=== PATIENT | male | born 1955 | race Caucasian/White ===

== ENCOUNTER 2017-02-16 04:48 | Inpatient (IN) ==
[2017-02-16] MEDS ORDERED: ASPIRIN PO STA (04:57)
--- NOTE | 2017-02-16 05:02 | PROVIDER DOCUMENTATION ---
HPI-Cardiac General - General Chief Complaint: Shortness of Breath Stated Complaint: sob Time Seen by Provider: 02/16/17 04:56 Source: patient Unable to obtain history due to:: urgency Allergies/Adverse Reactions: Patient Allergies Allergy/AdvReac Type Severity Reaction Status Date / Time Penicillins Allergy ANAPHYLAXIS Verified 12/20/15 18:57 Home Medications: Home Medication List Medication Instructions Recorded Confirmed Last Taken Type Amitriptyline HCl 100 mg PO HS 12/20/15 02/16/17 02/15/17 21:00 History Carisoprodol [Soma] 350 mg PO Q6H PRN PRN 12/20/15 02/16/17 02/15/17 18:00 History Diazepam [Valium] 10 mg PO HS PRN 12/20/15 02/16/17 12/19/15 20:00 History 10mg Morphine E.r. [Ms Contin] 60 mg PO TID 12/20/15 02/16/17 02/15/17 18:00 History Naloxone HCl [Evzio] 0.4 ml IM PRN PRN 12/20/15 02/16/17 Unknown History Pregabalin [Lyrica] 75 mg PO BID 12/20/15 02/16/17 02/15/17 21:00 History Hydrocodone/APAP 10 mg/325 mg 1 each PO Q4H PRN PRN #0 tablet 12/29/15 02/16/17 02/15/17 18:00 Rx [[place]ire-10] Melatonin 10 mg PO QHS #0 tablet 12/29/15 02/16/17 Unknown Rx Nivolumab [Opdivo] 100 mg IV DIRECTED 02/16/17 02/16/17 02/11/17 08:00 History Ranitidine [Zantac] 300 mg PO QHS PRN 02/16/17 02/16/17 Unknown History - History of Present Illness-Cardiac Nature of Presenting Problem: 61 year old male with a history of lung cancer, s/p chemotherapy presents complaining of severe generalized swelling and dyspnea over the last 1 week. He also complains of inability to urinate. Location: reports: substernal Quality of Pain: reports: tightness Onset/Duration: last week Timing: still present Context/Activities at Onset: reports: light activity Modifying Factors: improves with: nothing Palpitation Quality: N/A History of arrythmia: reports: none Recent use of:: reports: no stimulants Nitro Today/Relief: reports: no nitro taken today Aspirin Treatment Today: reports: no aspirin today Prior Chest Pain/Cardiac Workup: reports: non-cardiac Associated Symptoms: reports: diaphoresis, shortness of breath, swelling/lump in chest, vomiting Similar Symptoms Previously?: No Recently Seen Here or By Another Healthcare Provider: No Review of Systems - Adult - REVIEW OF SYSTEMS - ADULT Constitutional: reports: no symptoms reported Eyes: reports: no symptoms reported Ears, Nose, Mouth & Throat: reports: no symptoms reported Cardiovascular: reports: no symptoms reported Respiratory: reports: no symptoms reported, chronic cough, cough, dyspnea on exertion, excessive sputum production, shortness of breath, wheezing Gastrointestinal: reports: no symptoms reported Genitourinary: reports: no symptoms reported Musculoskeletal: reports: no symptoms reported Integumentary: reports: no symptoms reported Neurological: reports: no symptoms reported Psychiatric: reports: no symptoms reported Endocrine: reports: no symptoms reported Hematologic/Lymphatic: reports: no symptoms reported Allergic/Immunologic: reports: no symptoms reported All Other Systems: Reviewed and Negative Past History - Adult - PAST MEDICAL HISTORY-ADULT Review of Records: reports: Old Records Reviewed, Nursing Assessment Review, Medications Reviewed, Social history reviewed & non-contributory. Physical Exam-General - PHYSICAL EXAM-ADULT Initial Vital Signs Reviewed: Yes - CONSTITUTIONAL General Appearance: severe distress, anxious - EYES Eyes: PERRL/EOMI - HEAD, EARS, NOSE, MOUTH & THROAT HENMT: normocephalic/atraumatic, normal ENT inspection, TMs normal - NECK Neck: non-tender, full range of motion - RESPIRATORY Respiratory: respiratory distress (peripheral edema), decreased breath sounds, rales, rhonchi, wheezing, dull on percussion, prolonged expiration, pain on inspiration - CARDIOVASCULAR Cardiovascular: normal peripheral pulses, regular rate, rhythm - GASTROINTESTINAL (ABDOMEN) Abdominal Exam: normal bowel sounds, non tender - LYMPHATIC Lymphatic: no adenopathy - MUSCULOSKELETAL Back Exam: normal inspection, no CVA tenderness, no vertebral tenderness Extremity: normal range of motion, non-tender, normal gait - SKIN Integumentary: normal color, normal turgor, warm/dry - NEUROLOGIC Neurologic: examination grader II-XII nml as tested, grossly normal, no motor/sensory deficits - PSYCHIATRIC Psych/Mental Status: normal mood/affect, normal thought content, normal thought process Progress - PLAN OF CARE/RESULTS Progress/Plan/Lab Results: Vital Signs - 8 hr 02/16/17 04:48 Temperature 97.9 F Pulse Rate 101 H Respiratory Rate 22 Blood Pressure 151/87 O2 Sat by Pulse Oximetry 96 Laboratory Results - last 24 hr 02/16/17 02/16/17 02/16/17 04:45 04:45 04:45 WBC 12.74 H RBC 4.64 L Hgb 14.9 Hct 46.1 MCV 99.4 H MCH 32.1 H MCHC 32.3 L RDW Std Deviation 13.6 Plt Count 437 H MPV 9.6 Immature Gran % (Auto) 0.2 Neut % (Auto) 86.1 H Lymph % (Auto) 2.4 L Hughes % (Auto) 10.9 H Eos % (Auto) 0.2 Baso % (Auto) 0.2 Immature Gran # (Auto) 0.02 Neut # (Auto) 10.97 H Lymph # (Auto) 0.31 L Hughes # (Auto) 1.39 H Eos # (Auto) 0.03 Baso # (Auto) 0.02 PT INR PTT (Actin FS) Sodium 128 L Potassium 4.5 Chloride 78 L Carbon Dioxide 43 H Anion Gap 7 BUN 7 L Creatinine 0.4 L Estimated GFR/1.73 m2 > 60 BUN/Creatinine Ratio 18 Glucose 99 Calculated Osmolality 255 Calcium 9.4 Magnesium 1.6 Total Bilirubin 0.29 AST 44 H ALT 22 Alkaline Phosphatase 161 H Creatine Kinase 90 Troponin T Miv-W-Aovtlqxuocs Pept 1632 H Total Protein 7.3 Albumin 3.2 L Globulin 4.1 Albumin/Globulin Ratio 0.8 Plasma Lactate 02/16/17 02/16/17 02/16/17 04:45 04:45 04:45 WBC RBC Hgb Hct MCV MCH MCHC RDW Std Deviation Plt Count MPV Immature Gran % (Auto) Neut % (Auto) Lymph % (Auto) Hughes % (Auto) Eos % (Auto) Baso % (Auto) Immature Gran # (Auto) Neut # (Auto) Lymph # (Auto) Hughes # (Auto) Eos # (Auto) Baso # (Auto) PT 12.3 H INR 1.16 PTT (Actin FS) 36.9 H Sodium Potassium Chloride Carbon Dioxide Anion Gap BUN Creatinine Estimated GFR/1.73 m2 BUN/Creatinine Ratio Glucose Calculated Osmolality Calcium Magnesium Total Bilirubin AST ALT Alkaline Phosphatase Creatine Kinase Troponin T 0.023 Dic-X-Xbvimtwiuge Pept Total Protein Albumin Globulin Albumin/Globulin Ratio Plasma Lactate 1.0 Orders Category Date Time Status Cardiac Monitoring DIRECTED Care 02/16/17 04:57 Completed Gore Cath Insertion ORDERED Care 02/16/17 06:52 Active Oxygen Therapy- ED Nursing DIRECTED Care 02/16/17 04:57 Completed Saline Loc NOW Care 02/16/17 04:57 Completed CHEST-PORTABLE [RAD] Stat Exams 02/16/17 04:57 Taken ABG [RESP] Routine Lab 02/16/17 07:12 Ordered BLOOD CULTURE [BLDCUL] Stat Lab 02/16/17 04:50 Results CBC WITH ELECTRONIC DIFF [HEME] Stat Lab 02/16/17 04:45 Completed CK PROFILE [SP CHEM] Stat Lab 02/16/17 04:45 Completed COMPREHENSIVE METABOLIC PANEL [CHEM] Stat Lab 02/16/17 04:45 Completed LACTATE, PLASMA [CHEM] Stat Lab 02/16/17 04:45 Completed MAGNESIUM [CHEM] Stat Lab 02/16/17 04:45 Completed PRO B-NATRIURETIC PEPTIDE Stat Lab 02/16/17 04:45 Completed PROTIME WITH INR [COAG] Stat Lab 02/16/17 04:45 Completed PTT [COAG] Stat Lab 02/16/17 04:45 Completed TROPONIN T Stat Lab 02/16/17 04:45 Completed Aspirin Med 02/16/17 04:57 Discontinued 325 mg PO STAT STA Furosemide [Lasix] Med 02/16/17 05:32 Discontinued 100 mg .ROUTE .STK-MED ONE Furosemide [Lasix] Med 02/16/17 05:31 Discontinued 80 mg IV NOW ONE Hydromorphone [Dilaudid] Med 02/16/17 05:32 Discontinued 1 mg .ROUTE .STK-MED ONE Hydromorphone [Dilaudid] Med 02/16/17 05:30 Discontinued 1 mg IV NOW ONE Hydromorphone [Dilaudid] Med 02/16/17 06:53 Discontinued 1 mg IV NOW ONE Levaquin 750 mg/D5w IV Now Med 02/16/17 07:20 Ordered Levofloxacin 750 mg/D5w [Levaquin 750 mg/D5w] 750 mg in 150 ml IV NOW Proparacaine 0.5% Ophth Soln [Alcaine 0.5% Ophth Soln] Med 02/16/17 06:50 Discontinued 15 ml .ROUTE .STK-MED ONE EKG [EKG] Stat Ther 02/16/17 04:57 Ordered Result Diagrams: 02/16/17 04:45 02/16/17 04:45 - EKG 1 Rate: 87 Rhythm: sinus [place]: normal QRS: normal SC Interval: normal ST Wave: normal Prior EKG Comparison: unchanged from prior - XRAY 1 XRAY Study: Chest Impression: Abnormal (Severe L pleural effusion, worse than 01/30/17) - CONSULTS/PCP/HOSPITALIST Notification #1 *Consult/PCP/Hospitalist*: Dr. An Time Discussed: 07:21 Reason/Comments: Admit to Dr. An Consult Disposition: Admit Departure - Departure Date of Disposition Decision: 02/16/17 Time of Disposition Decision: 07:21 DIAGNOSIS: SOB (shortness of breath), Pneumonia Lung cancer Qualifiers: Laterality: left Lung location: unspecified part of lung Qualified Code(s): C34.92 - Malignant neoplasm of unspecified part of left bronchus or lung Disposition: ADMITTED INPATIENT 09 Certified Medical Emergency: Emergent Condition: Stable Referrals and Follow-Ups: Kirby Ward MD [Primary Care Provider] - - Critical Care Note This patient required my direct & personal management of CC.: No
[2017-02-16] MEDS ORDERED: DILAUDID IV ONE ×2 (05:30→06:53)
[2017-02-16] MEDS ORDERED: LASIX IV ONE ×2 (05:31→09:34)
[2017-02-16] MEDS ORDERED: DILAUDID ONE (05:32)
[2017-02-16] MEDS ORDERED: LASIX ONE (05:32)
[2017-02-16 05:46] LABS: INR 1.16; PROTIME 12.3 Seconds (9.2-11.7); PTT 36.9 Seconds (22.0-36.0)
[2017-02-16 06:14] LABS: AGAP 7; ALBUMIN 3.2 g/dL (3.5-5.0); ALKALINE PHOSPHATASE 161 U/L (32-122); BUN 7 mg/dL (8-22); CALCIUM 9.4 mg/dL (8.8-10.2); CHLORIDE 78 mmol/L (98-107); CK PROFILE 90 U/L (24-204); COSMO 255; GOT 44 U/L (10-34); GPT 22 U/L (10-44); MAGNESIUM 1.6 mg/dL (1.5-2.7); POTASSIUM 4.5 mmol/L (3.5-5.1); SODIUM 128 mmol/L (136-145); TCO2 43 mmol/L (25-35); TOTAL BILIRUBIN 0.29 mg/dL (0.20-1.00); TOTAL PROTEIN 7.3 g/dL (6.3-8.3)
[2017-02-16 06:38] LABS: BASO% 0.2 % (0.0-0.8); EOS# 0.03 X1000 (0.0-0.7); EOS% 0.2 % (0.0-10.0); HEMATOCRIT 46.1 % (42.0-52.0); HEMOGLOBIN 14.9 g/dL (14.0-18.0); IMM GRAN# 0.02 X1000 (0.0-0.04); IMM GRAN% 0.2 % (0.0-0.5); LYMPH# 0.31 X1000 (1.2-3.4); LYMPH% 2.4 % (20.5-51.1); MANUAL DIFF NEEDED? NO; MCH 32.1 PG (27-31); MCHC 32.3 g/dL (33-37); MCV 99.4 FL (81-99); MONO# 1.39 X1000 (0.11-0.59); MONO% 10.9 % (1.7-9.3); MPV 9.6 FL (7.4-10.4); NEUT% 86.1 % (42.2-75.2); PLT 437 X1000 (130-400); RBC 4.64 XMIL (4.7-6.1)
[2017-02-16] MEDS ORDERED: ALCAINE 0.5% OPHTH SOLN ONE (06:50)
[2017-02-16] MEDS ORDERED: LEVAQUIN 750 MG/D5W 750 MG/150 ML IVPB IV ONE (07:20)
--- NOTE | 2017-02-16 08:26 | Diag Imaging Result Doc PS360 ---
EXAM: CHEST-PORTABLE INDICATION: CP TECHNIQUE: One view COMPARISON: 01/30/2017 FINDINGS: There is a large left pleural effusion and a small to moderate-sized right pleural effusion. These have increased in size during the interval. The left hemithorax is completely opacified. There is atelectasis and/or infiltrate at the right lung base. The cardiomediastinal silhouette is largely obscured by the opacified left hemithorax. IMPRESSION: Large left pleural effusion with complete opacification of the left hemithorax and small to moderate-sized right effusion. These have worsened during the interval. Electronically signed by Nam Weber 02/16/2017 8:24 AM
[2017-02-16] MEDS ORDERED: NORCO-10 PO PRN (09:16)
[2017-02-16] MEDS ORDERED: MS CONTIN PO SCH ×2 (09:22→09:30)
[2017-02-16] MEDS: SOLU-MEDROL IV SCH ×2 (10:32→17:51)
[2017-02-16 10:53] LABS: ALLEN TEST YES; BE 23.1 mmoll (-3.0-3.0); BLOOD TYPE ARTERIAL; DRAW SITE R RADIAL; METHB 0.8 % (0.0-1.5); O2(CT) 17.6 mL/dL (15.0-23.0); PO2(98.6) 63 mmHg (60-100); SAMPLE BLOOD; THB 13.7 g/dL (11.5-17.4); pH(98.6) 7.44 (7.35-7.45)
[2017-02-16 10:56] LABS: MODALITY CANNULA
[2017-02-16 11:00] LABS: PCO2(98.6) 77 mmHg (35-45)
[2017-02-16] MEDS ORDERED: NARCAN IM PRN (12:04)
[2017-02-16] MEDS ORDERED: NIVOLUMAB IV SCH (12:15)
[2017-02-16] MEDS: LOVENOX SUBQ SCH (12:53)
[2017-02-16] MEDS: DILAUDID IV PRN ×3 (12:53→19:13)
[2017-02-16] MEDS ORDERED: CARDIZEM IV ONE (14:03)
--- NOTE | 2017-02-16 14:08 | HISTORY AND PHYSICAL ---
CHIEF COMPLAINT: Shortness of breath, swelling of feet, gaining weight (25 pounds) since he had his last chemotherapy, Opdivo. HISTORY OF PRESENT ILLNESS: He is a 61-year-old white male patient of Dr. Ward under the care of Dr. Hammer, who recently had chemotherapy. Complains of dyspnea, swelling, chronic pain, unable to urinate. He gained 25 pounds. In the ER, chest x-ray showed worsening of the fluid effusion on the right side. Left lung is completely jake out. He is hypoxic. Gore catheter was given and patient was given IV Lasix with excellent diuresis. He is asking for more pain medicine. As a result, he has been hospitalized. PAST MEDICAL HISTORY: 1. Squamous cell carcinoma, moderately differentiated, in the left upper lobe. 2. Chronic neck pain. 3. Chronic back pain. 4. Acid reflux disease. PAST SURGICAL HISTORY: Cervical spine surgery, back surgery, left femur comminuted fracture repair. MEDICATIONS: Amitriptyline 100 mg daily, Soma 350 q.6 as needed, Valium 10 mg as needed, morphine (MS Contin) 60 p.o. t.i.d. Naloxone as needed. Lyrica 75 p.o. b.i.d. [place] 10 q.4 as needed. Melatonin 10 mg daily. Zantac 300 daily. Opdivo as directed by Dr. Hammer. ALLERGIES: Penicillin (anaphylaxis). SOCIAL HISTORY: 27 years. He used to work for a [employer]. Quit smoking for the last 1 year. No alcohol. No children. FAMILY HISTORY: Mom is alive with atrial fibrillation. Father of old age. Siblings are fine. REVIEW OF SYSTEMS: HEENT: No headache. No vision problem. No earache. No sore throat. Neck: No goiter. No lymphadenopathy. No bruit. Cardiopulmonary: Shortness of breath, wheezing, and swelling of feet. Gaining weight. No chest pain. Gastrointestinal: No nausea, vomiting, abdominal pain. Genitourinary: No history of hesitancy, frequency. Gore catheter was placed. Musculoskeletal: Chronic neck pain, back pain, swelling of feet. Neurologic: No weakness or seizures, dizziness or vertigo. PHYSICAL EXAMINATION: VITAL SIGNS: Stable. He is 5 feet 10 inches, 162 pounds. On nasal cannula, 93%. GENERAL APPEARANCE: He is slightly kyphotic, not in respiratory distress. Asking for more pain medicine. HEENT: Atraumatic, normocephalic. Pupils equal, reactive to light. TMs are normal. Nose and throat within normal limits. NECK: Supple. No lymphadenopathy. No goiter. CHEST: Decreased breath sounds, left base. Scattered rhonchi. HEART: Sounds are regular. ABDOMEN: Belly is soft, nontender. Good bowel sounds. No masses palpable. EXTREMITIES: Pedal edema 3+ noted. GENITOURINARY: Gore was placed. A lot of penile edema. NEUROLOGIC: No obvious focal deficits noted. INVESTIGATIONS: CBC: White cell count 12.7, hematocrit 46, platelets 437,000. PT 12 and INR 1.1. ABG: pH is 7.44, pCO2 is 77, and PO2 is 63 on 2L. SMA 7: Sodium 138, potassium 4.8, chloride 78, BUN 7, creatinine 0.4, glucose 99, magnesium 1.6. Liver function tests were normal. proBNP 1600. Chest x-ray: Worsening of the effusion. Small to moderate right pleural effusion large, worsening during interval. Last echocardiography was normal LV systolic function. ASSESSMENT AND PLAN: 1. A 61-year-old white gentleman, admitted to the hospital with shortness of breath with underlying left upper lobe non-small cell lung cancer, on chemotherapy, worsening with effusion and pedal edema after recent chemotherapy. The patient is not interested in taking further chemotherapy. Plan is oxygen, IV Lasix, and follow up on the laboratories in the morning. 2. Gastrointestinal prophylaxis with IV Protonix. 3. Deep venous thrombosis prophylaxis with Lovenox. 4. Chronic pain. Continue on Elavil, Soma, MS Contin, [place], and Dilaudid as needed. 5. Possible infection. Continue on IV Levaquin. 6. Living will, DNR. 7. Non-small cell lung cancer, under the care of Dr. Hammer and Dr. Dexter. Will be consulted about his prognosis. Dr. Ward is going to follow up. cc: MD Kirby Rosenberg MD
[2017-02-16] MEDS: SODIUM CHLORIDE 0.9% INJ SCH (14:11)
[2017-02-16] MEDS: PROTONIX IV SCH (14:11)
[2017-02-16] MEDS: CARDIZEM 100 MG/NS 100 MG/100 ML IVPB IV SCH (15:35)
[2017-02-16] MEDS: NORCO-10 PO PRN ×2 (16:43→21:42)
[2017-02-16] MEDS: SOMA PO PRN ×2 (16:44→21:42)
[2017-02-16] MEDS: MELATONIN PO SCH (20:31)
[2017-02-16] MEDS: MS CONTIN PO SCH (20:31)
[2017-02-16] MEDS: ELAVIL PO SCH (20:31)
[2017-02-16] MEDS: LASIX IV SCH (20:32)
[2017-02-17] MEDS: DILAUDID IV PRN ×7 (00:12→22:22)
[2017-02-17] MEDS: SOLU-MEDROL IV SCH ×4 (02:44→17:30)
[2017-02-17] MEDS: NORCO-10 PO PRN ×2 (02:44→06:44)
[2017-02-17 04:08] LABS: ALLEN TEST YES; BE 21.7 mmoll (-3.0-3.0); BLOOD TYPE ARTERIAL; DRAW SITE R RADIAL; METHB 0.7 % (0.0-1.5); O2(CT) 18.1 mL/dL (15.0-23.0); PO2(98.6) 75 mmHg (60-100); SAMPLE BLOOD; SAO2 94.2 % (95.0-100.0); THB 13.8 g/dL (11.5-17.4); pH(98.6) 7.42 (7.35-7.45)
[2017-02-17 04:10] LABS: MODALITY CANNULA; PCO2(98.6) 79 mmHg (35-45)
[2017-02-17 04:45] LABS: HEMATOCRIT 41.2 % (42.0-52.0); HEMOGLOBIN 13.6 g/dL (14.0-18.0); LYMPH# 0.21 X1000 (1.2-3.4); LYMPH% 2.4 % (20.5-51.1); MANUAL DIFF NEEDED? YES; MCH 32.4 PG (27-31); MCV 98.1 FL (81-99); MONO# 0.58 X1000 (0.11-0.59); MONO% 6.5 % (1.7-9.3); MPV 9.2 FL (7.4-10.4); NEUT% 91.1 % (42.2-75.2); PLT 421 X1000 (130-400)
[2017-02-17 05:12] LABS: LYMPHS 16 % (21-51); MONO 2 % (1-9)
[2017-02-17] MEDS: MS CONTIN PO SCH ×3 (05:14→20:33)
[2017-02-17 05:50] LABS: AGAP 8; BUN 8 mg/dL (8-22); CALCIUM 9.1 mg/dL (8.8-10.2); CHLORIDE 76 mmol/L (98-107); COSMO 253; POTASSIUM 3.9 mmol/L (3.5-5.1); SODIUM 126 mmol/L (136-145); TCO2 42 mmol/L (25-35)
[2017-02-17] MEDS: SOMA PO PRN (06:44)
--- NOTE | 2017-02-17 07:41 | PROGRESS NOTE ---
DATE: 02/17/2017 SUBJECTIVE: After he was admitted he has been asking for more pain medicine. He has been under the care of Dr. Horner. Oncology consult was done. I did increase the MS Contin to 60 mg t.i.d. He started having rapid atrial fibrillation at 160. He was started on Cardizem drip 5 mg and transferred to the [facility]. Now he has converted to sinus and slowly weaned off of Cardizem drip. He has been sitting at the bedside asking for more pain medicines with MS Contin 90 mg t.i.d. He was seeing Dr. Horner in [place]. He denies any shortness of breath, chest pain, other than chronic neck back pain. REVIEW OF SYSTEMS: Other than pain, no other symptoms. PHYSICAL EXAMINATION: Vital signs: Afebrile, blood pressure is 139/76, weight 158 pounds. On nasal cannula at 5 L. I's and O's negative 1700 mL. HEENT: Within normal limits. Chest: Decreased breath sounds on the left base. Abdomen: Belly is soft, nontender. Extremities: There is 2+ pedal edema in both legs. : Gore catheter was placed. Neurologic: No obvious deficits noted. INVESTIGATIONS: White cell count 8.9, hematocrit 41, platelets 421,000. ABG: PH is 7.42, pCO2 79, and PO2 75, 40%. SMA 7: Sodium 126, potassium 3.9, chloride 76, BUN 8, creatinine 0.4, glucose 122. Chest x-ray was pending. ASSESSMENT AND PLAN: 1. Paroxysmal atrial fibrillation. Currently in sinus. wean Off Cardizem drip. 2. Non-small cell lung cancer on the left side with underlying infection. Currently on IV steroids and IV antibiotics with Levaquin. 3. Deep vein thrombosis prophylaxis with Lovenox. 4. Edema with the atrial fibrillation. Continue on IV Lasix and we will check the echocardiography for LV function. 5. Chronic pain. Currently maxed out on Elavil, Soma, Lyrica, Pelzer, MS Contin , and Dilaudid. I told him we will slowly increase once the Dilaudid is coming off. 6. Gastrointestinal prophylaxis with IV Protonix. 7. Plan of care is follow up on chest x-ray and echocardiography. 8. Hyponatremia. Continue fluid restrictions. If no better consider Samsca. LEVEL OF DOCUMENTATION: 25 minutes cc: MD Kirby Rosenberg MD MTDD
[2017-02-17] MEDS: LEVAQUIN 500 MG/D5W 500 MG/100 ML IVPB IV SCH (08:07)
[2017-02-17] MEDS: LASIX IV SCH ×2 (08:07→20:33)
[2017-02-17] MEDS: CARDIZEM 100 MG/NS 100 MG/100 ML IVPB IV SCH (11:22)
[2017-02-17] MEDS: LOVENOX SUBQ SCH (12:56)
[2017-02-17] MEDS: PROTONIX IV SCH (12:56)
--- NOTE | 2017-02-17 13:17 | Diag Imaging Result Doc PS360 ---
EXAM: CHEST-2 VIEWS INDICATION: hypoxia TECHNIQUE: 2 views COMPARISON: 02/16/2017 FINDINGS: There is a stable large left effusion with essentially complete opacification of the left hemithorax like the previous study. The smaller right effusion with adjacent atelectasis and/or infiltrate at the base is stable. No new consolidations are appreciated. Cardiac silhouette is grossly stable. IMPRESSION: Stable chest. Electronically signed by Nam Weber 02/17/2017 1:15 PM
[2017-02-17] MEDS: MELATONIN PO SCH (20:32)
[2017-02-17] MEDS: LYRICA PO SCH (20:32)
[2017-02-17] MEDS: ELAVIL PO SCH (20:33)
[2017-02-18] MEDS: DILAUDID IV PRN ×6 (01:52→22:36)
[2017-02-18] MEDS: SOLU-MEDROL IV SCH ×4 (01:59→16:56)
[2017-02-18] MEDS: NORCO-10 PO PRN ×4 (02:59→16:05)
[2017-02-18] MEDS: SOMA PO PRN ×2 (02:59→11:38)
[2017-02-18] MEDS: MS CONTIN PO SCH ×2 (05:14→20:01)
--- NOTE | 2017-02-18 07:07 | EKG Report ---
Test Performed on : 02/16/2017 2:21:07 PM Test Reason : increased heart rate Blood Pressure : / mmHG Vent. Rate : 140 BPM Atrial Rate : 147 BPM P-R Int : 000 ms QRS Dur : 102 ms QT Int : 314 ms P-R-T Axes : 000 -63 105 degrees QTc Int : 479 ms Atrial fibrillation. with rapid ventricular response. Left axis deviation Inferior infarct (cited on or before 16-FEB-2017) Possible Anterolateral infarct (cited on or before 16-FEB-2017) Abnormal ECG When compared with ECG of 16-FEB-2017 04:52, (Unconfirmed) Atrial fibrillation. has replaced Sinus rhythm. Vent. rate has increased BY [address] now depressed in Lateral leads Confirmed by Venu PAIZ, Jarret Brandon ([id number]) on 02/18/2017 7:14:13 AM
[2017-02-18] MEDS: CARDIZEM 100 MG/NS 100 MG/100 ML IVPB IV SCH (07:26)
[2017-02-18] MEDS: LASIX IV SCH ×2 (08:42→20:01)
[2017-02-18] MEDS: LYRICA PO SCH ×4 (08:42→20:01)
[2017-02-18] MEDS: LEVAQUIN 500 MG/D5W 500 MG/100 ML IVPB IV SCH (08:42)
[2017-02-18] MEDS ORDERED: MS CONTIN PO SCH (10:00)
--- NOTE | 2017-02-18 10:02 | PROGRESS NOTE ---
DATE: 02/18/2017 Mr. Hickey is in severe pain and requesting morphine medication which he is getting morphine as well as Dilaudid and Manteno. We will stop up on the MS Contin. He has CO2 retention and acute respiratory failure with bilateral pleural effusion. He may be helped probably with thoracentesis on the right side. We do not know about it. We will get Pulmonary consult with Dr. Jiang and see if he thinks that he can be helped with that. cc: Kirby Ward MD
[2017-02-18] MEDS: LOVENOX SUBQ SCH (11:38)
[2017-02-18] MEDS ORDERED: HALDOL IV PRN (12:37)
[2017-02-18] MEDS: SODIUM CHLORIDE 0.9% INJ SCH (12:53)
[2017-02-18] MEDS: PROTONIX IV SCH (12:53)
--- NOTE | 2017-02-18 13:19 | CONSULTATION ---
DATE OF CONSULTATION: 02/18/2017 REFERRING PHYSICIAN: Kirby Ward MD and . CONSULTATION/CHIEF COMPLAINT: Evaluation for left lung opacity. Pleural effusion is possible in a patient with left lung cancer. HISTORY OF PRESENTING ILLNESS: A 61-year-old man who had recent chemotherapy for lung cancer on the left. Chronic pain, came in with shortness of breath. Chest x-ray shows left opacification. It could be a pleural effusion or atelectasis. There is volume loss and elevation of left diaphragm. PAST MEDICAL HISTORY: Acid reflux disease. Squamous cell lung cancer, left upper lobe. Moderately differentiated. Chemotherapy with Dr. Hammer. Chronic pain. PAST SURGICAL HISTORY: Left femur fracture repair. Back surgery, cervical spine surgery. ALLERGIES: Possible to penicillin and medications in the hospital and at home were reviewed. SOCIAL HISTORY: , present during evaluation. Ex-smoker. FAMILY HISTORY: Hypertension, atrial fibrillation. REVIEW OF SYSTEMS: As detailed in history of presenting illness, otherwise noncontributory. MEDICATIONS: In the hospital reviewed and they include [place], Elavil, Soma, Cardizem, Lovenox for DVT prophylaxis. Lasix, Haldol in order for him to go through CAT scan without increasing the load of narcotics. Levaquin, melatonin, Solu-Medrol, morphine, Naloxone, Protonix, Lyrica. PHYSICAL EXAMINATION: General: On general exam, he is sitting in chair with his at his side, trying to eat lunch. Vital Signs: Noted. Head and Neck: Examined. Trachea midline. Chest Exam: There is no entry to the left side of the chest. A few crackles on the right. Cardiac: S1, S2. Abdomen: Nontender on examination. Extremities: +1 pedal edema. Neurologic: Awake and communicative. LABS AND INVESTIGATIONS: Chest x-ray reviewed. Films and report chest CT scan is pending and ABG, CBC, CMP reviewed with pH 7.42, pCO2 of 39, pO2 of 75. This is on February 17. So we are repeating ABG today. ProBNP is pending also. ASSESSMENT AND PLAN: 1. A 61-year-old man with lung cancer. Recent chemotherapy, followed by Dr. Hammer. 2. Left side opacification, possible effusion versus compression atelectasis or combination. 3. Shortness of breath, chronic obstructive pulmonary disease, hypercarbia. Caution is advised with narcotics and he needs them for his chronic pain syndrome. Will add BiPAP. PLAN: Check chest CT scan. Antibiotics. ABG, BiPAP, ProBNP. Cautioned with narcotics. If CAT scan shows significant pleural effusion, we will consider thoracentesis. Thank you for the courtesy of this consultation. cc: MD Kirby Fair MD
--- NOTE | 2017-02-18 13:35 | Diag Imaging Result Doc PS360 ---
EXAM: CT THORAX W/O CONTRAST HISTORY: SOB TECHNIQUE: Dose reduction protocol COMPARISON: 04/19/2016 FINDINGS: Interval development of a moderate to large right-sided pleural effusion measuring 6.1 cm posteriorly and inferiorly in the midline. There is complete consolidation with air bronchograms in the left lower lobe with consolidation and cavity within the left upper lobe. This cavity measures 4.6 cm. A small patchy infiltrate is found in the right middle lobe. There is atelectasis to the right middle and lower lobes. I believe there are enlarged necrotic left hilar lymph nodes. There is occlusion of the distal left mainstem bronchus similar to the prior exam. IMPRESSION: Overall interval worsening in the left consolidation and cavity with development of a moderate to large right pleural effusion. Electronically signed by Kian Edmond 02/18/2017 1:32 PM
[2017-02-18 14:18] LABS: ALLEN TEST YES; BLOOD TYPE ARTERIAL; DRAW SITE R RADIAL; METHB 0.2 % (0.0-1.5); O2(CT) 17.8 mL/dL (15.0-23.0); PO2(98.6) 63 mmHg (60-100); SAMPLE BLOOD; THB 13.8 g/dL (11.5-17.4)
[2017-02-18 14:20] LABS: MODALITY CANNULA; PCO2(98.6) 82 mmHg (35-45)
[2017-02-18] MEDS ORDERED: COLACE PO ONE (16:23)
[2017-02-18] MEDS ORDERED: MIRALAX PO ONE (16:23)
[2017-02-18] MEDS: MELATONIN PO SCH (20:01)
[2017-02-18] MEDS: ELAVIL PO SCH (20:01)
--- NOTE | 2017-02-18 21:27 | CONSULTATION ---
DATE OF CONSULTATION: 02/18/2017 HISTORY OF PRESENT ILLNESS: In brief, this is a 61-year-old male with unresectable left lung cancer with metastases. He has been undergoing palliative chemotherapy. He has had some systemic complications associated with this and is on a break currently. He presents now with diffuse anasarca, bilateral pleural effusions worse on the right than left. He has respiratory symptoms with hypercapnia. He has been diuresed with some improvement in his clinical state but CT scan shows a large right effusion and consolidated left lung likely driving his pulmonary symptoms. No bleeding is noted. Dr. Hammer asked me see the patient to discuss palliative drainage of this effusion and the options here. PAST MEDICAL HISTORY: 1. Non-small cell lung cancer of the left lung. 2. Gastroesophageal reflux disease. 3. History of chemotherapy. 4. Chronic pain. PAST SURGICAL HISTORY: He had a femur fracture, back surgery with cervical fusion. SOCIAL HISTORY: His and family are here. He has a longstanding history of smoking. He denies alcohol. FAMILY HISTORY: Hypertension, atrial fibrillation but no other cancer. REVIEW OF SYSTEMS: Ten point negative except as mentioned in HPI. PHYSICAL EXAMINATION: Vital Signs: Temperature is 98.9 degrees, pulse 83, blood pressure 155/91, oxygen is 90% on 5 L nasal cannula. General: He is alert, conversant but seems disoriented sometimes. On examination he is chronically ill-appearing with anasarca. HEENT : There is some temporal wasting and cachexia. There is no scleral icterus. Cardiovascular: Normal rate. Regular rhythm. Pulmonary: Shallow respirations but not in obvious distress. He is on nasal cannula. Cardiovascular: Normal rate, regular rhythm. Pulmonary: I do not see any chest scars. Abdomen: Soft, nontender, nondistended. Integumentary: Otherwise warm and dry without jaundice. Musculoskeletal: There is muscle atrophy throughout. Peripheral vascular: There is significant diffuse anasarca in bilateral upper and lower extremities with 2+ edema here. LABS: White count 8 yesterday, hematocrit 41. ABGs today 7.40, CO2 is 82, O2 is 63, bicarbonate is 41, creatinine 0.4. Sodium yesterday was 126 with a BNP of 1677. CT of the chest obtained on 02/18 shows worsening left-sided consolidation, a cavitary lesion and a large right pleural effusion causing compressive atelectasis. ASSESSMENT: This is a 61-year-old male with metastatic lung cancer undergoing palliative chemotherapy which is on hold now due to some systemic toxicity. He has developed what appears to be a symptomatic right effusion with a densely consolidated left lung from his mainstem tumor. I had a long discussion with the patient, his family and Dr. Hammer about this patient. I recommended a right PleurX catheter placement for palliation of his effusion. I suspect that his left lung is providing him no benefit and with an increasing effusion on the right related to his anasarca and possible malignant effusion, this tipped him over into acute on chronic respiratory failure and he is very symptomatic from this. I had a discussion with the patient about the PleurX catheter and how this would palliate his symptoms at home. We also discussed the possibility that this may not improve his current situation and that he may remain dyspneic and orthopneic. I do think given the size of the effusion and that this is his functional on the right, he would benefit from some form of drainage. I think a simple chest tube placement at bedside would not be beneficial as this would most likely recur and talc pleurodesis would not be beneficial. As such, I have recommended a PleurX catheter on the right side tomorrow in the operating room. They understand and consent, and are looking forward to proceeding with this as I hope to make Mr. Dickinson feel better over the next several weeks to months. Overall a very grim prognosis. The family and patient understand this but we are happy to hopefully help make him feel better. cc: MD Kirby Genao MD MTDD
[2017-02-19] MEDS: SOLU-MEDROL IV SCH ×3 (02:39→16:46)
[2017-02-19] MEDS: DILAUDID IV PRN ×4 (02:54→16:46)
[2017-02-19 04:29] LABS: ALLEN TEST YES; BE 22.8 mmoll (-3.0-3.0); BLOOD TYPE ARTERIAL; DRAW SITE R RADIAL; METHB 0.3 % (0.0-1.5); O2(CT) 18.1 mL/dL (15.0-23.0); PO2(98.6) 59 mmHg (60-100); SAMPLE BLOOD; SAO2 91.7 % (95.0-100.0); THB 14.2 g/dL (11.5-17.4)
[2017-02-19 04:31] LABS: MODALITY BI PAP; PCO2(98.6) 86 mmHg (35-45)
[2017-02-19] MEDS: MS CONTIN PO SCH ×3 (04:59→20:22)
[2017-02-19] MEDS: CARDIZEM 100 MG/NS 100 MG/100 ML IVPB IV SCH ×3 (04:59→22:20)
--- NOTE | 2017-02-19 08:07 | Diag Imaging Result Doc PS360 ---
EXAM: CHEST-1 VIEW - 02/19/2017 HISTORY: follow up effusion TECHNIQUE: Portable chest 0730 COMPARISON: 02/17/2017 FINDINGS: The left hemithorax remains essentially completely opacified. There is an air-containing cavity at the mid left hemithorax which appear stable. There is a medium right pleural effusion which appears of increased mildly. There is no pneumothorax identified. IMPRESSION: Continued complete opacification of left hemithorax. Mild increase in right pleural effusion. Electronically signed by Frank Scott 02/19/2017 8:04 AM
[2017-02-19] MEDS ORDERED: LEVAQUIN 500 MG/D5W 500 MG/100 ML IVPB ONE (08:27)
[2017-02-19] MEDS ORDERED: MARCAINE 0.25% PF/EPI 1:200,000 ONE (08:30)
[2017-02-19] MEDS ORDERED: XYLOCAINE 1% ONE (08:32)
[2017-02-19] MEDS: LEVAQUIN 500 MG/D5W 500 MG/100 ML IVPB IV SCH (08:33)
--- NOTE | 2017-02-19 08:53 | PROGRESS NOTE ---
DATE: 02/19/2017 SUBJECTIVE: Still having shortness of breath and chest pain. OBJECTIVE: No events overnight. Heart rate has been in the 90s, temperature 97.5, blood pressure 136/85, oxygen saturation is high 90s on 5 L. Labs are reviewed. ABG, 7.4, 86, 59, 42 a BNP of 1901. Chest x-ray shows consolidation of the left lung with effusion on the right. ASSESSMENT: This is a 61-year-old male with metastatic lung cancer. He has got dense consolidation of the left lung related to obstructive mainstem bronchus lesion and a moderate to large, right-sided effusion causing some compressive atelectasis. A long discussion with patient and his family. They have consented to right-sided PleurX catheter with the goal of palliating his dyspnea and orthopnea. Also discussed the possibility that this may not get better with drainage of effusion on the right. We will plan to go to the operating room today for right-sided Pleurx catheter under minimal sedation. cc: MD Kirby Genao MD
[2017-02-19] MEDS ORDERED: FLEET ENEMA PR ONE (09:09)
[2017-02-19] MEDS: DILAUDID ONE ×6 (09:25→12:34)
--- NOTE | 2017-02-19 09:31 | PROGRESS NOTE ---
DATE: 02/19/2017 Mr. Hickey is in about the same general condition. He has gone for surgery for thoracentesis, probably on the right side. His chest x-ray shows possible worsening of the pneumonia and the tumor with worsening of the pleural effusion bilaterally. He has more CO2 retention. We will continue with the current management on him. He is very dependent on pain medication and does not really want pain medicine decreased. We will see the progress after some thoracentesis today. -5 cc: Kirby Ward MD
[2017-02-19] MEDS ORDERED: LR 1,000 ML ONE (09:59)
--- NOTE | 2017-02-19 10:06 | Diag Imaging Result Doc PS360 ---
EXAM: CHEST-PORTABLE - 02/19/2017 HISTORY: pleural cath placement TECHNIQUE: Portable chest 0945 COMPARISON: earlier exam of same morning at 0730 FINDINGS: There is been interval placement of a right chest catheter was tip at the medial right base. There is been associated substantial decrease in right pleural effusion. There are no other interval changes identified. There is opacification the left hemithorax with volume loss similar to the previous exam. There is no pneumothorax identified. IMPRESSION: Interval placement of right chest catheter with associated substantial decrease in right pleural effusion. Electronically signed by Frank Scott 02/19/2017 10:03 AM
[2017-02-19] MEDS: LASIX IV SCH (10:33)
[2017-02-19] MEDS: LYRICA PO SCH ×4 (10:33→20:22)
[2017-02-19] MEDS ORDERED: CORDARONE 150 MG/D5W 150 MG/100 ML IV.SOLN IV ONE (11:46)
[2017-02-19] MEDS ORDERED: CORDARONE 360 MG/D5W 360 MG/200 ML IV.SOLN IV ONE (11:47)
--- NOTE | 2017-02-19 12:00 | OPERATIVE NOTE ---
PROCEDURE DATE: 02/19/2017 PREOPERATIVE DIAGNOSES: 1. Metastatic lung cancer, status post chemotherapy. 2. Right-sided recurrent effusion, symptomatic. POSTOPERATIVE DIAGNOSES: 1. Metastatic lung cancer, status post chemotherapy. 2. Right-sided recurrent effusion, symptomatic. PROCEDURES PERFORMED: Right-sided PleurX catheter. ESTIMATED BLOOD LOSS: Less than 2 mL. ANESTHESIA: MAC and local. INDICATIONS: This is a 59-year-old male with long-standing left mainstem bronchus lung cancer who presented with acute on chronic respiratory failure. He is status post chemotherapy and presented with increasing shortness of breath and orthopnea. CT of his chest showed complete consolidation of the left lung related to his mainstem bronchial lesion and approximately 50% collapse of the right lung related to a large right-sided effusion. There was felt to be no intervention that would benefit his left lung; however, it was felt that drainage of the effusion on the right might help palliate his symptoms and allow him to leave the hospital. OPERATIVE FINDINGS: There was a large volume of straw-colored fluid in the right chest. OPERATIVE NOTE: Risks, benefits, and alternatives were discussed with the patient and his family, consented to the procedure. He was taken to the operating room, placed in supine position. Very light IV anesthesia was administered, given his tenuous respiratory status. He tolerated this well. We then prepped his right chest after placing his arm out with chlorhexidine, and draped in usual fashion. I preoperatively reviewed his imaging and mapped out a level of greatest area of fluid off the tip of the scapula and this was approximately the 6th or 7th intercostal space, a couple of spaces below the level of the nipple. We palpated this out and a time -out performed. We injected local anesthetic in the mid to anterior midclavicular line down to the level of the periosteum. I then aspirated straw-colored pleural fluid. At this point, using the pink introducer needle, we accessed the pleural space over the top of the rib, protecting the neurovascular bundle under the rib, and threaded the guidewire into the right hemothorax. We removed the needle. We then made our anterior counter incision approximately 6 cm anteriorly, and tunneled the catheter between the two, placing the cuff underneath the subcutaneous tissue. Then serially dilated up the tract over the wire using Seldinger technique, leaving a peel-away introducer sheath within the wound, each time including the hole to prevent air entry into the chest. We then threaded the catheter the entire length, making sure all fenestrations were within the chest, into the right pneumothorax. Closed the skin with serous fluid noted within the catheter, and there was approximately 200 to 300 that escaped after dilating the tract. We then closed the skin incision at the entry site with a 4-0 Monocryl and then placed a pursestring suture around the external injury site and secured the catheter to the skin with silk suture. Applied a Tegaderm and sponge dressing that came along with the catheter. We then hooked it to a Pleur-evac device and placed it to suction. A large amount of a continual stream of serous fluid was noted to return. Patient tolerated procedure very well, with no identified complications. Counts were correct x2. We will follow him, keep his tube to suction tonight, and monitor him over the next 24 hours. cc: MD Kirby Genao MD MTDD
[2017-02-19] MEDS: NORCO-10 PO PRN ×2 (12:07→19:33)
--- NOTE | 2017-02-19 12:48 | EKG Report ---
Test Performed on : 02/19/2017 10:38:28 AM Test Reason : Tachycardia Blood Pressure : / mmHG Vent. Rate : 175 BPM Atrial Rate : 163 BPM P-R Int : 000 ms QRS Dur : 090 ms QT Int : 264 ms P-R-T Axes : 000 -52 111 degrees QTc Int : 450 ms Atrial fibrillation. with rapid ventricular response. Left axis deviation Anterolateral infarct (cited on or before 16-FEB-2017) Abnormal ECG When compared with ECG of 16-FEB-2017 14:21, No significant change was found Confirmed by Venu PAIZ, Jarret Brandon ([id number]) on 02/19/2017 6:26:25 PM
--- NOTE | 2017-02-19 12:48 | EKG Report ---
Test Performed on : 02/19/2017 12:21:30 PM Test Reason : afib Blood Pressure : / mmHG Vent. Rate : 154 BPM Atrial Rate : 166 BPM P-R Int : 000 ms QRS Dur : 106 ms QT Int : 290 ms P-R-T Axes : 000 -59 101 degrees QTc Int : 464 ms Atrial fibrillation. with rapid ventricular response. Left axis deviation Inferior infarct , age undetermined Abnormal ECG When compared with ECG of 19-FEB-2017 10:38, (Unconfirmed) ST elevation has replaced ST depression in Anterior leads Confirmed by Venu PAIZ, Jarret Brandon ([id number]) on 02/19/2017 6:26:37 PM
--- NOTE | 2017-02-19 13:20 | CONSULTATION ---
DATE OF CONSULTATION: 02/19/2017 IMPRESSION: 1. Paroxysmal atrial fibrillation with rapid ventricular rate. Patient recently in sinus rhythm this admission and developed recurrent atrial fibrillation with RVR which is now more persistent. Patient tolerating tachyarrhythmia with minimal symptomatology. 2. 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 3. Bilateral pleural effusions. Patient is status post right sided chest tube today. 4. History of peripheral vascular disease. RECOMMENDATIONS: 1. Continue intravenous Cardizem for rate control. 2. Add amiodarone in an effort to restore/maintain sinus rhythm. 3. Anticoagulate with Lovenox 1 mg/kg subcutaneously q.12. 4. Repeat echocardiography to assess for any pericardial disease related to lung cancer. 5. Screen for deep vein thrombosis in light of patient's bilateral lower extremity edema and left upper extremity edema. HISTORY: This 61-year-old white male with squamous cell lung carcinoma in left upper lobe is status post recent chemotherapy. Was admitted for further management of enlarging bilateral pleural effusions. He developed worsening dyspnea as well as hypoxemia. He also is developing peripheral edema. He has been diuresed some. He had a right chest tube placed today. He has demonstrated episodes of atrial fibrillation but converted back to sinus rhythm. He developed further atrial fibrillation with rapid ventricular rate after his chest tube placement and for this reason, Cardiology was consulted. He is minimally aware of his tachyarrhythmia with very mild palpitations. His primary complaint is that of back pain and pain where he had the chest tube. He is not aware of any previous cardiac problems. He does have history of significant peripheral vascular disease. PAST MEDICAL HISTORY: 1. Squamous cell carcinoma moderately differentiated in the left upper lobe. 2. Chronic neck pain. 3. Chronic back pain. 4. Gastroesophageal reflux. 5. Peripheral vascular disease. PAST SURGICAL HISTORY: Includes cervical spine surgery, back surgery and repair of left femur comminuted fracture. He is also status post percutaneous interventions on his peripheral vascular disease in the lower extremities. ALLERGIES: He is allergic or intolerant to penicillin. MEDICATIONS: As listed. SOCIAL HISTORY: He is . Used to work for a [employer]. He quit smoking over the past year. He does not use alcohol. FAMILY HISTORY: Is negative for premature coronary disease. REVIEW OF SYSTEMS: Pulmonary: Noteworthy for recent dyspnea as well as right-sided chest pain post chest tube placement. Gastrointestinal: Negative beyond history of present illness. Constitutional: Negative beyond history of present illness. Remainder of review of systems negative beyond history of present illness with 14 total systems reviewed. PHYSICAL EXAMINATION: General: This is a thin, older, middle-aged white male in no distress. Vital Signs: As recorded. Noteworthy for heart rate over 158-180 with ECG monitor showing atrial fibrillation with rapid ventricular rate. Blood pressure stable. HEENT: Extraocular movements intact. Mucous membranes are moist. Neck: Supple. Internal jugular venous distention is not apparent. However on the right side there is an external jugular vein that appears to be persistently distended. Chest: Auscultation of chest reveals rhonchi in the right chest and diminished breath sounds in left base. Cardiac Exam: Reveals an irregular tachycardia without appreciable murmur or gallop. Abdomen: Soft, nontender. Extremities: Demonstrate 3+ pretibial edema. He also demonstrates 2+ to 3+ edema of the left upper extremity from the elbow down where he had previous IV. Neurologic Exam: Reveals him to be alert and fully oriented. Speech is fluent. Moves all 4 extremities equally well. Skin: Warm dry. Psychiatric: Mood to be appropriate. ECG shows atrial fibrillation with rapid ventricular rate, left axis deviation, and delayed precordial R-wave progression, cannot exclude previous anterior infarct of undetermined age. cc: MD Kirby Aguilar MD
--- NOTE | 2017-02-19 13:26 | EKG Report ---
Test Performed on : 02/19/2017 1:02:51 PM Test Reason : change in rhythm Blood Pressure : / mmHG Vent. Rate : 087 BPM Atrial Rate : 087 BPM P-R Int : 134 ms QRS Dur : 108 ms QT Int : 356 ms P-R-T Axes : 008 -37 053 degrees QTc Int : 428 ms Normal sinus rhythm. Left atrial enlargement Left axis deviation Inferior infarct (cited on or before 16-FEB-2017) Cannot rule out Anterior infarct , age undetermined Abnormal ECG When compared with ECG of 19-FEB-2017 12:21, (Unconfirmed) Sinus rhythm. has replaced Atrial fibrillation. Vent. rate has decreased BY 67 BPM Non-specific change in ST segment in Lateral leads Confirmed by Venu PAIZ, Jarret Brandon ([id number]) on 02/19/2017 6:27:15 PM
[2017-02-19] MEDS: PROTONIX IV SCH (14:11)
[2017-02-19] MEDS: SODIUM CHLORIDE 0.9% INJ SCH (14:11)
[2017-02-19] MEDS: SOMA PO PRN (14:11)
[2017-02-19] MEDS ORDERED: DIPRIVAN 1% ONE (14:20)
[2017-02-19] MEDS: CORDARONE PO SCH (17:43)
[2017-02-19] MEDS ORDERED: CORDARONE 540 MG in D5W 289.2 ML IV ONE (18:00)
[2017-02-19] MEDS: ELAVIL PO SCH (20:22)
[2017-02-19] MEDS: MELATONIN PO SCH (20:22)
[2017-02-20] MEDS: SOLU-MEDROL IV SCH ×3 (02:01→17:00)
--- NOTE | 2017-02-20 05:19 | EKG Report ---
Test Performed on : 02/19/2017 4:22:14 PM Test Reason : afib Blood Pressure : / mmHG Vent. Rate : 080 BPM Atrial Rate : 080 BPM P-R Int : 136 ms QRS Dur : 110 ms QT Int : 372 ms P-R-T Axes : -03 -36 066 degrees QTc Int : 429 ms Normal sinus rhythm. Left axis deviation Incomplete left bundle branch block Abnormal ECG When compared with ECG of 19-FEB-2017 13:02, (Unconfirmed) No significant change was found Confirmed by Venu PAIZ, Jarret Brandon ([id number]) on 02/24/2017 12:35:59 PM
[2017-02-20] MEDS: MS CONTIN PO SCH ×3 (06:04→20:29)
--- NOTE | 2017-02-20 07:03 | EKG Report ---
Test Performed on : 02/20/2017 06:37:04 AM Test Reason : afib Blood Pressure : / mmHG Vent. Rate : 076 BPM Atrial Rate : 076 BPM P-R Int : 142 ms QRS Dur : 108 ms QT Int : 384 ms P-R-T Axes : 030 -32 067 degrees QTc Int : 432 ms Normal sinus rhythm. Left atrial enlargement Left axis deviation Inferior infarct , age undetermined Cannot rule out Anterior infarct , age undetermined Abnormal ECG When compared with ECG of 19-FEB-2017 16:22, (Unconfirmed) Incomplete left bundle branch block is no longer present Confirmed by Venu PAIZ, Jarret Brandon ([id number]) on 02/24/2017 12:36:53 PM
--- NOTE | 2017-02-20 07:27 | Diag Imaging Result Doc PS360 ---
CHEST-1 VIEW - 02/20/2017 INDICATION: effusion TECHNIQUE: COMPARISON: 02/19/2017 FINDINGS: Stable near completely opacified left hemithorax with an air cavity and some air bronchograms in the bases. Stable left hemidiaphragm elevation. Stable chest tube at the right lung base. Stable small right pleural effusion. No pneumothorax. Slight infiltrate in the right lung base remain stable. IMPRESSION: No, dictation or change from prior. Electronically signed by Vazquez Poe 02/20/2017 7:24 AM
[2017-02-20] MEDS: DILAUDID IV PRN ×6 (07:53→23:38)
[2017-02-20] MEDS: LEVAQUIN 500 MG/D5W 500 MG/100 ML IVPB IV SCH (08:49)
[2017-02-20] MEDS: CORDARONE PO SCH ×3 (08:49→20:29)
[2017-02-20] MEDS: LYRICA PO SCH ×4 (08:49→20:30)
[2017-02-20] MEDS: SOMA PO PRN ×3 (08:55→23:39)
[2017-02-20] MEDS: NORCO-10 PO PRN ×4 (08:55→23:39)
--- NOTE | 2017-02-20 09:48 | PROGRESS NOTE ---
DATE: 02/20/2017 Mr. Jett is doing better. He is breathing better. He has a chest tube on the right side. Dr. Hall is following him as far as that is concerned. His left side is almost nonfunctional. He can breathe better now. We will continue with the current management on him. -5 cc: Kirby Ward MD
[2017-02-20 10:36] LABS: BASO% 0.1 % (0.0-0.8); HEMATOCRIT 45.3 % (42.0-52.0); HEMOGLOBIN 14.2 g/dL (14.0-18.0); IMM GRAN# 0.03 X1000 (0.0-0.04); IMM GRAN% 0.2 % (0.0-0.5); LYMPH# 0.29 X1000 (1.2-3.4); MANUAL DIFF NEEDED? YES; MCHC 31.3 g/dL (33-37); MONO# 1.66 X1000 (0.11-0.59); MONO% 11.4 % (1.7-9.3); MPV 9.3 FL (7.4-10.4); NEUT% 86.3 % (42.2-75.2); PLT 359 X1000 (130-400); RBC 4.44 XMIL (4.7-6.1)
[2017-02-20 10:47] LABS: AGAP 5; ALBUMIN 3.4 g/dL (3.5-5.0); ALKALINE PHOSPHATASE 130 U/L (32-122); BUN 15 mg/dL (8-22); CALCIUM 9.3 mg/dL (8.8-10.2); CHLORIDE 76 mmol/L (98-107); COSMO 253; GOT 24 U/L (10-34); GPT 24 U/L (10-44); POTASSIUM 4.6 mmol/L (3.5-5.1); SODIUM 125 mmol/L (136-145); TCO2 44 mmol/L (25-35); TOTAL BILIRUBIN 0.26 mg/dL (0.20-1.00)
[2017-02-20 11:10] LABS: BANDS 4 % (0-1); MONO 6 % (1-9)
[2017-02-20] MEDS: PROTONIX IV SCH (12:58)
[2017-02-20] MEDS: SODIUM CHLORIDE 0.9% INJ SCH (12:58)
--- NOTE | 2017-02-20 13:42 | CONSULTATION ---
DATE OF CONSULTATION: 02/20/2017 ADMITTING PHYSICIAN: Dr. Santosh An REQUESTING PHYSICIAN: Dr. Santosh An ONCOLOGIST: Dr. Lance Hammer We appreciate this consult. CHIEF COMPLAINT: Weight gain and lower extremity edema. HISTORY OF PRESENT ILLNESS: Mr. Hickey is a 61-year-old, male with a history of stage IIIA non-small cell lung cancer well known to Dr. Hammer. Currently, being treated with OPDIVO. His last treatment was cycle 2 on 01/31/2017. The patient reports that after that time he began to have shortness of breath with bilateral lower extremity swelling and weight gain of 25 pounds. He presented to [facility] Emergency department where chest x-ray revealed worsening of pleural effusion on the right side and A left lung was that was completely jake out. The patient was placed on IV Lasix and proceeded to diuresis. He was admitted for evaluation and treatment. We are consulted secondary to the patient's history of the Lung cancer. PAST MEDICAL HISTORY: 1. Squamous cell stage IIIA non-small cell lung cancer currently being treated with OPDIVO with last treatment being 01/31/2017. 2. Chronic neck pain. 3. Chronic back pain. 4. Gastroesophageal reflux disease. PAST SURGICAL HISTORY: 1. Cervical spine surgery. 2. Back surgery. 3. Left femur fracture repair. SOCIAL HISTORY: The patient quit smoking 1 year ago. He does not use alcohol or illicit drugs. FAMILY HISTORY: Negative for any oncologic or hematologic problems. MEDICATIONS ON ADMISSION: 1. Amitriptyline. 2. Soma. 3. Valium. 4. Morphine. 5. Naloxone. 6. Lyrica. 7. Hebron. 8. Melatonin. 9. Zantac. 10. OPDIVO. ALLERGIES: Penicillin. REVIEW OF SYSTEMS: A 14 point review of systems was obtained and is negative except as mentioned in HPI. PHYSICAL EXAMINATION: General: Mr. Hickey is a very pleasant, 61-year-old male lying supine in bed and slightly dyspneic but otherwise in no immediate distress. HEENT: Normocephalic, atraumatic. Mucous membranes are pink and moist. Sclerae is anicteric. Extraocular movements intact. Neck: Supple. Lungs: Decreased breath sounds in the left base and rhonchi scattered. CV: S1-S2 is heard without murmur, rub or gallop. Abdomen: Soft, nondistended, nontender. Bowel sounds are positive in all quadrants without rebound or guarding noted. Extremities: Without clubbing or cyanosis. He does have 3+ bilateral lower extremity edema. Dermatologic: No rashes, bruises or lesions. Neurologic: The patient is awake, alert, and oriented x3. He has no focal deficit at this time. LABORATORY DATA: White blood cell count 12.7, hemoglobin 46, platelets 433,000. INR is 1.1. Sodium 138, potassium 4.8, chloride 78, BUN 7, creatinine 0.4, glucose 99. Magnesium is 1.6 and liver function tests are within normal limits. ProBNP is 1600. ASSESSMENT AND PLAN: 1. Non-small cell lung cancer squamous cell, currently on OPDIVO status post cycle 2 on 01/31/2017. We will hold further treatment until patient's acute illness has passed. 2. Acute shortness of breath. With worsening pleural effusion and pedal edema status post chemotherapy. The patient is currently on oxygen with IV Lasix ordered daily and is diuresing well at this time. Would continue to monitor CBC. 3. Chronic pain. Would continue Elavil, Soma, MS Contin and Hebron. I will increase Dilaudid as the patient's pain is not controlled well at this time. We will order Dilaudid 1 mg q.3h p.r.n. pain. 4. Deep venous thrombosis prophylaxis with Lovenox. We will follow along with you and make further recommendations pending outcomes. Dictated by RAMONE Witt for Lance Hammer MD cc: RAMONE Witt MD Amit V. Vora, MD
--- NOTE | 2017-02-20 13:42 | PROGRESS NOTE ---
DATE: 02/20/2017 SUBJECTIVE: Patient relates feeling better. He denies any shortness of breath. He still has some chest discomfort around where the chest tube is in place. OBJECTIVE: Vital Signs: Blood pressure 155/85, heart rate 86 and regular, with ECG monitor showing sinus rhythm. Chest: Auscultation of chest reveals some inspiratory crackles in the right base, diminished breath sounds in the left base. Jugular venous distention appears to be present. Extremities: Demonstrate 2 to 3+ pretibial edema bilaterally. He also has significant edema in the left upper extremity where he once had IV, and now is developing edema in the right upper extremity where he currently has an IV. IMPRESSIONS: 1. Paroxysmal atrial fibrillation. Patient continues in sinus rhythm now on oral amiodarone. 2. Squamous cell lung cancer, moderately differentiated, left upper lobe. 3. Bilateral pleural effusion. Patient is status post right-sided chest tube. 4. History of peripheral vascular disease. 5. Neck vein distention and tendency for edema in the upper extremities, aggravated by in intravenous fluid administration. Consider the possibility of vena cava obstruction related to his malignancy. Consider also the possibility of deep vein thrombosis. RECOMMENDATIONS: 1. Continue amiodarone. 2. Arrange for chest CT scan to screen for vena caval obstruction. 3. Venous Doppler of lower extremities. cc: MD Kirby Aguilar MD
--- NOTE | 2017-02-20 14:00 | Diag Imaging Result Doc PS360 ---
EXAM: CT THORAX W/CONTRAST HISTORY: R/O vena thoracic vena cava obstruction TECHNIQUE: CT of the chest with intravenous contrast and dose reduction (clarity.) COMMENT: The left lung is nearly completely opacified. There is a cavity present in the anterior left upper lobe. There is atelectasis versus pneumonia in the right lower and middle lobes and ill-defined groundglass opacity seen in the inferior right upper lobe. The latter finding is much more extensive than on 02/18/2017. The pleural fluid collection which was previously present on the right side is largely resolved. The distal left Mainstem bronchus isn't occluded or compressed. This was also the case previously. There is an apparent parahilar mass on the left. There is likely to be tumor invasion of the pericardium. Some mass effect is present on the right side anteriorly. This compresses the right atrium and superior vena cava. The regional skeleton is stable in appearance compared to the previous study. Some gas is present in the anterolateral chest wall on the right and there is a chest tube on the right side the tip of which is located in the medial posterior costophrenic sulcus. 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 Electronically signed by Porter Cristobal 02/20/2017 1:58 PM
[2017-02-20] MEDS ORDERED: LINZESS PO ONE (14:31)
--- NOTE | 2017-02-20 14:32 | Extremity Venous Study ---
PROCEDURE NAME: Venous U/S Bilateral Legs - 02/19/2017 PROCEDURE: Bilateral lower extremity venous duplex and color flow imaging study. EQUIPMENT USED: The Zeomatrixid E 9 ultrasound system with a 9 L-D transducer. DATE OF STUDY: 02/19/2017. REFERRING PHYSICIAN: Dr. Ward. PATIENT PROFILE: A 61-year-old male. TAIL DOGGER: Michell Delgado RVT. INDICATIONS: Swelling of the limb, M 79.89. FINDINGS: Right common femoral vein and its branches, deep and superficial femoral veins were satisfactorily imaged. They had flow through them and were compressible. Right popliteal vein and the deep veins below the right knee were all compressible and had flow through them. The superficial veins in the right lower extremity were compressible throughout their length. The left common femoral vein and its branches, deep and superficial femoral veins were also satisfactorily imaged. They had flow through them and were compressible. Left popliteal vein and the deep veins below the left knee were all compressible and had flow through them. The superficial veins of the left lower extremity were compressible throughout their length. INTERPRETATION: No evidence of acute deep or superficial venous thrombosis of the bilateral lower extremities. cc: MD Ilsa Ulrich PA Amit V. Vora, MD
--- NOTE | 2017-02-20 15:03 | Extremity Venous Study ---
PROCEDURE NAME: Venous U/S Left Arm - 02/19/2017 STUDY: Left upper extremity venous duplex, and color flow imaging study using the [place] Vivid E9 ultrasound System with a 9 L-D transducer. REFERRING PHYSICIAN: Kirby Ward MD. MEDICATION TECH: Michell Delgado RVT. INDICATIONS: Swelling of the limb. FINDINGS: The left internal jugular vein was compressible throughout its length and had flow through it. The left subclavian and axillary veins had flow through them and were compressible. The left brachial vein was compressible throughout its length as was the superficial veins of the left arm. The cephalic and basilic veins. The veins in the antecubital fossa were compressible as were the small veins in the left forearm. INTERPRETATION: No evidence of acute deep or superficial venous thrombosis of the left upper extremity. cc: MD Ilsa Ulrich PA Amit V. Vora, MD
[2017-02-20] MEDS ORDERED: LASIX IV ONE (16:42)
--- NOTE | 2017-02-20 18:58 | PROGRESS NOTE ---
DATE: 02/20/2017 SUBJECTIVE: He feels better he says. He is still swollen but he states his breathing is much improved. OBJECTIVE: No fevers. Temperature 98. Pulse 84. Blood pressure 152/85. Oxygen saturation 99% on 5-6 liters. Cardiovascular: Normal rate. Regular rhythm. Pulmonary: He is still on nasal cannula, seems to be breathing a little more comfortably. He has the PleurX catheter in place to minus 20 suction. He has had almost 2 liters of fluid out. I reviewed his labs. I have reviewed his chest x-ray. Chest x-ray shows resolution of the effusion with no pneumothorax. PLAN: We will disconnect his tube from suction today. Follow his chest x-rays tomorrow. Otherwise, defer medical management to the oncology service, hospitalist, and cardiology service. cc: MD Kirby Genao MD
[2017-02-20] MEDS: CARDIZEM 100 MG/NS 100 MG/100 ML IVPB IV SCH (20:23)
[2017-02-20] MEDS: MELATONIN PO SCH (20:28)
[2017-02-20] MEDS: ELAVIL PO SCH (20:29)
[2017-02-20] MEDS ORDERED: DULCOLAX PR ONE (22:08)
[2017-02-20] MEDS ORDERED: FLEET ENEMA PR ONE (22:08)
[2017-02-21] MEDS: SOLU-MEDROL IV SCH ×4 (01:34→18:02)
[2017-02-21 04:40] LABS: ALLEN TEST YES; BE 19.3 mmoll (-3.0-3.0); BLOOD TYPE ARTERIAL; DRAW SITE R RADIAL; METHB 0.1 % (0.0-1.5); O2(CT) 19.6 mL/dL (15.0-23.0); PO2(98.6) 84 mmHg (60-100); SAMPLE BLOOD; SAO2 95.1 % (95.0-100.0); THB 14.7 g/dL (11.5-17.4); pH(98.6) 7.23 (7.35-7.45)
[2017-02-21 04:41] LABS: MODALITY BI PAP; PCO2(98.6) 129 mmHg (35-45)
[2017-02-21] MEDS: MS CONTIN PO SCH ×3 (05:30→20:59)
[2017-02-21] MEDS: LYRICA PO SCH ×4 (08:40→21:00)
[2017-02-21] MEDS: CORDARONE PO SCH ×3 (08:40→18:02)
[2017-02-21] MEDS: LINZESS PO SCH (08:41)
[2017-02-21] MEDS: LEVAQUIN 500 MG/D5W 500 MG/100 ML IVPB IV SCH (08:41)
[2017-02-21] MEDS: DILAUDID IV PRN ×3 (08:41→22:15)
--- NOTE | 2017-02-21 09:34 | PROGRESS NOTE ---
DATE: 02/21/2017 SUBJECTIVE: Mr. Hickey is not doing good. His ABGs revealed further increase in the pCO2 to 120. Last night he refused to get BiPAP machine hooked on. His CT scan of the chest shows invasion of the pericardium, as well as compression of the superior vena cava, which explains partly the edema in both arms. His general condition is going downhill and he understands that. He has constipation. We will try a soapsuds enema on him. Repeat electrolytes in the morning. cc: Kirby Ward MD
[2017-02-21] MEDS: SOMA PO PRN (10:22)
[2017-02-21] MEDS: NORCO-10 PO PRN (10:22)
[2017-02-21] MEDS ORDERED: NORCO-10 PO PRN (11:13)
[2017-02-21] MEDS ORDERED: DILAUDID IV PRN (11:14)
[2017-02-21] MEDS: PROTONIX IV SCH (12:58)
[2017-02-21 14:09] LABS: BLOOD TYPE ARTERIAL; METHB 0.5 % (0.0-1.5); O2(CT) 16.8 mL/dL (15.0-23.0); SAMPLE BLOOD; SAO2 85.9 % (95.0-100.0); THB 14.1 g/dL (11.5-17.4)
[2017-02-21 14:17] LABS: PCO2(98.6) 104 mmHg (35-45)
[2017-02-21 14:19] LABS: ALLEN TEST YES; DRAW SITE L RADIAL; MODALITY CANNULA; PO2(98.6) 49 mmHg (60-100)
--- NOTE | 2017-02-21 16:45 | ECHO REPORT ---
ORDER DATE: 02/19/2017 INDICATION: Atrial fibrillation, lung cancer, effusion. FINDINGS: 1. Right atrium is mildly enlarged at 4.3 cm. 2. Mild tricuspid regurgitation. RV systolic pressure of 57. 3. Normal RV size and systolic function. 4. No significant pulmonic insufficiency. 5. Normal left atrial size at 2.8. 6. There is slight anterior prolapse of the mitral valve. Mild mitral regurgitation. 7. Normal LV size, end-diastolic dimension of 4.4. Normal wall thicknesses with a posterior and interventricular septal wall thickness 1.1 cm each. Likely normal LV systolic function with an estimated EF of 55%. 8. Aortic valve opens well although it is sclerotic. There is no stenosis. The valve is trileaflet. No insufficiency. 9. The aorta appears normal in visualized segments. 10. There does appear to be a mild pericardial effusion that appears predominantly located around the apex. There does not appear to be any evidence of tamponade-type physiology. cc: MD Ilsa Stahl PA Amit V. Vora, MD
[2017-02-21] MEDS ORDERED: GOLYTELY PO ONE (17:37)
[2017-02-21] MEDS: CARDIZEM 100 MG/NS 100 MG/100 ML IVPB IV SCH (17:40)
[2017-02-21] MEDS: MIRALAX PO SCH ×2 (18:02→21:02)
--- NOTE | 2017-02-21 18:54 | PROGRESS NOTE ---
DATE: 02/21/2017 SUBJECTIVE: The patient continues to complain of back pain. He denies dyspnea on supplemental oxygen per nasal cannula. He has some discomfort at the right side chest tube site. OBJECTIVE: Vital Signs: Blood pressure 141/82, heart rate 66 and regular with ECG monitor showing sinus rhythm. Chest: Clear to auscultation bilaterally. Cardiac exam: Was a regular rate and rhythm without appreciable murmur or gallop. Extremities: Demonstrate 2 to 3+ edema in the lower extremities and 2+ edema in both upper extremities. DIAGNOSTIC STUDIES: Chest CT scan reports. Tumor pressing on right atrium and superior vena cava. Limiting blood return. IMPRESSION: 1. Paroxysmal atrial fibrillation. Patient continues in sinus rhythm on oral amiodarone. 2. 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 3. Bilateral pleural effusions. Potentially also related to superior vena cava and right atrial obstruction. 4. Peripheral vascular disease. 5. Chronic obstructive pulmonary disease. RECOMMENDATION: 1. Continue amiodarone. 2. Consider merits of radiation therapy to shrink tumor pressing against heart. 3. Overall prognosis would appear to be poor. This was discussed with the patient and his family. cc: MD Kirby Aguilar MD
[2017-02-21] MEDS: MELATONIN PO SCH (20:59)
[2017-02-21] MEDS: ELAVIL PO SCH (20:59)
[2017-02-22] MEDS: SOMA PO PRN (00:43)
[2017-02-22] MEDS: DILAUDID PO PRN ×3 (01:15→13:43)
[2017-02-22] MEDS: SOLU-MEDROL IV SCH (02:32)
[2017-02-22] MEDS: DILAUDID IV PRN ×3 (02:32→10:16)
[2017-02-22] MEDS: MS CONTIN PO SCH (04:40)
[2017-02-22 06:05] LABS: HEMATOCRIT 46.7 % (42.0-52.0); HEMOGLOBIN 14.4 g/dL (14.0-18.0); IMM GRAN# 0.04 X1000 (0.0-0.04); IMM GRAN% 0.2 % (0.0-0.5); LYMPH# 0.16 X1000 (1.2-3.4); LYMPH% 0.8 % (20.5-51.1); MANUAL DIFF NEEDED? NO; MCHC 30.8 g/dL (33-37); MCV 103.8 FL (81-99); MONO# 1.18 X1000 (0.11-0.59); MONO% 5.9 % (1.7-9.3); MPV 9.3 FL (7.4-10.4); NEUT% 93.1 % (42.2-75.2); PLT 331 X1000 (130-400)
[2017-02-22 06:20] LABS: AGAP 4; BUN 21 mg/dL (8-22); CALCIUM 9.6 mg/dL (8.8-10.2); CHLORIDE 81 mmol/L (98-107); COSMO 261; POTASSIUM 5.7 mmol/L (3.5-5.1); SODIUM 127 mmol/L (136-145); TCO2 42 mmol/L (25-35)
[2017-02-22] MEDS: LINZESS PO SCH (06:43)
[2017-02-22] MEDS: MIRALAX PO SCH (10:16)
[2017-02-22] MEDS: CORDARONE PO SCH (10:17)
[2017-02-22] MEDS: LYRICA PO SCH (10:17)
[2017-02-22] MEDS ORDERED: DURAGESIC 100 MICROGM/HR PATCH TD SCH (11:00)
--- NOTE | 2017-02-22 11:10 | PROGRESS NOTE ---
DATE: 02/22/2017 Mr. Dickinson is doing about the same. He continues to be in pain. He has generalized anasarca. He has some superior vena caval obstruction. He also has tumor impinging on the heart also. He understands that it is very difficult to gain his IV now and IV access. We are probably going to change pain medications to IM, p.o. or rectal route. We will put him Duragesic 100 mg Duragesic patch. Overall condition is unchanged. We will probably shift him to hospice services from tomorrow. -9 cc: Kirby Ward MD
[2017-02-22] MEDS ORDERED: LEVAQUIN PO SCH (11:30)
[2017-02-22] MEDS: SAMSCA PO ONE ×2 (11:32→13:44)
[2017-02-22] MEDS: CARDIZEM 100 MG/NS 100 MG/100 ML IVPB IV SCH (11:32)
[2017-02-22 11:42] VITALS: BP 155/93
--- NOTE | 2017-02-22 11:59 | Diag Imaging Result Doc PS360 ---
CHEST-PORTABLE - 02/22/2017 INDICATION: Chest tube TECHNIQUE: COMPARISON: 02/20/2017 FINDINGS: Stable right basilar chest tube. Stable small pleural effusion at the right base. Stable near complete opacification of the left hemithorax with volume loss and hemidiaphragm elevation. This is mostly consolidated lung with a small amount of effusion as seen on numerous prior studies. Stable cavity formation in the central left lung. IMPRESSION: No change from prior. Electronically signed by Vazquez Poe 02/22/2017 11:57 AM
[2017-02-22] MEDS: PROTONIX IV SCH (13:48)
--- NOTE | 2017-02-23 10:18 | DISCHARGE SUMMARY ---
ADMISSION DATE: 02/16/2017 DISCHARGE DATE: 02/22/2017 DISPOSITION: To [facility]. HISTORY OF PRESENT ILLNESS: Mr. Hickey, who is a 61-year-old white gentleman, was admitted with severe shortness of breath. When he came in, he had a left upper lobe non-small cell cancer. He had some chemotherapy. He also has severe pulmonary effusion bilaterally. LABORATORY DATA: In hospital, his chest CT scan on 02/18 revealed overall interval worsening of the consolidation and cavity with development of moderate to large right-sided pleural effusion. EKG on 02/20 revealed normal sinus rhythm, left atrial enlargement, left axis deviation. Echocardiogram revealed there was mild tricuspid regurgitation, and minimal pericardial effusion was noted. His ejection fraction was close to normal. Extremity venous flow studies did not reveal any evidence of superficial or deep vein thrombosis. CT scan of the chest revealed the presence of invasion the pericardium by tumor and some definite evidence of superior vena caval obstruction. COURSE IN THE HOSPITAL: He was treated with IV Lasix, IV antibiotics. He had a pleural effusion on the right side. Pulmonary consult was made. Surgical consult was made, and Dr. Hall put a chest tube in his right side. He improved tremendously after the chest tube. He kept on refusing the BiPAP at nighttime and . He was getting a tremendous amount of pain medications, which was constipating him and depressing the respirations, and he finally decided to go on hospice, and he was transferred to [facility] on 02/22/2017. FINAL DIAGNOSES: 1. Bilateral pleural effusion. 2. Mild congestive heart failure. 3. Mild anemia, hemoglobin 13.6. 4. Blood gases had revealed severe CO2 retention with respiratory acidosis and with metabolic compensation. 5. His proBNP was 1677. 6. He also had mild congestive heart failure. PROGNOSIS: Prognosis was poor. Family and the patient understood that. cc: Kirby Ward MD
== END 2017-02-22 14:02 | disposition hospice, home (50) ==
LOC: ED 04:48 → 3N 07:48 → 3S 15:26
PROVIDERS: ADMIT Internal Medicine; ATTEND Internal Medicine

== ENCOUNTER 2017-02-22 14:03 | Inpatient (IN) ==
[2017-02-22] MEDS: ROXANOL CONC. LIQUID SL PRN ×3 (16:12→21:57)
[2017-02-22] MEDS ORDERED: ATROPINE 1% OPHTH SOLN SL PRN (17:25)
[2017-02-22] MEDS ORDERED: SODIUM CHLORIDE 0.9% MISC PRN (17:27)
[2017-02-22] MEDS: SOMA PO PRN ×2 (18:15→23:52)
[2017-02-22] MEDS: DURAGESIC 100 MICROGM/HR PATCH TD SCH ×2 (18:17→19:25)
[2017-02-22] MEDS: ATIVAN SL PRN ×2 (20:50→23:12)
[2017-02-22] MEDS: SODIUM CHLORIDE 0.9% MISC SCH (23:16)
[2017-02-23] MEDS: ROXANOL CONC. LIQUID SL PRN ×3 (04:13→11:40)
[2017-02-23] MEDS: SODIUM CHLORIDE 0.9% MISC SCH ×2 (04:13→15:27)
--- NOTE | 2017-02-23 09:56 | HISTORY AND PHYSICAL ---
HISTORY OF PRESENT ILLNESS: Mr. Hickey is a 61-year-old, white gentleman was extremely short of breath. He has left-sided lung cancer with cavitation and pleural effusion with almost nonfunctioning left lung and had some effusion on the right side. He was admitted and had a chest tube placed on the right side for pleural effusion. The chest tube now was blocked and it was ready to be taken out. He was kept on BiPAP respirations, which he refused. He was on multiple pain medications and had severe constipation. Besides he had tumor invasion of the pericardium and obstruction related to the tumor of superior vena cava resulting into generalized anasarca, especially in the upper extremities and the face. He decided to go on hospice. His medications included Xarelto, Zantac, Lyrica, Opdivo, naloxone, morphine ER, fentanyl patch, Risperdal, amitriptyline. ACTIVE MEDICATIONS: Fentanyl, Soma, lorazepam, morphine sulfate, as well as promethazine. PHYSICAL EXAMINATION: GENERAL: The patient is apprehensive, alert. VITAL SIGNS: Revealed temperature normal, pulse 85 per minute, respiratory rate 21 per minute, blood pressure 127/89. HEENT: Head normocephalic. Pupils PERRLA. Fundus examination not done. NECK: Supple. JVP normal. ENT examination unremarkable, except for mild puffiness of the face. There is no evidence of lymphadenopathy, thyroid enlargement. There was gross bilateral pedal edema. Pedal pulses are feeble. BREAST EXAM: Normal. CHEST: Normal. On inspection lungs revealed almost no air entry on the left side and poor air entry in the right base. HEART: PMI in the normal position. Patient in sinus rhythm. No murmur, gallop or rub noted. ABDOMEN: Nondistended. Mild ascites noted. No organomegaly noted. Bowel sounds normal. RECTAL EXAM: Deferred. He has been having severe constipation. ELECTROENCEPHALOGRAM TECHNOLOGIST: Higher functions: The patient is apprehensive. Cranial nerves normal. Motor and sensory system examination unremarkable. Deep tendon reflexes normal. Plantars downgoing. Skull and spine examination normal for age. No cerebellar signs or signs of meningeal irritation. LOCOMOTOR EXAM: Unremarkable. SKIN EXAM: Unremarkable, except for multiple bruising and generalized anasarca involving all the 4 extremities and the face. CLINICAL IMPRESSION: Patient has terminal cancer of the left lung with bilateral pleural effusion, mild congestive heart failure. He is followed by [facility] here at the hospital. cc: Kirby Ward MD
--- NOTE | 2017-02-23 13:48 | PROGRESS NOTE ---
DATE: 02/23/2017 SUBJECTIVE: Mr. Dickinson is a hospice patient. He is having some dissatisfaction about the fentanyl patch. We are going to stop that. We will also stop his Ativan and put him on Xanax, and put him on Soma as well as [place], as he is wishing to have it. His overall condition is unchanged. His oral intake is very poor. He is under care of [facility]. -8 cc: Kirby Ward MD
[2017-02-23] MEDS: XANAX PO SCH ×3 (15:05→23:38)
[2017-02-23] MEDS: NORCO-10 PO PRN ×2 (15:23→21:21)
[2017-02-23] MEDS: SOMA PO SCH ×2 (15:24→23:38)
[2017-02-23] MEDS: MORPHINE IR PO PRN ×2 (19:29→23:41)
[2017-02-23] MEDS: MS CONTIN PO SCH (21:21)
[2017-02-24] MEDS: SODIUM CHLORIDE 0.9% MISC SCH ×3 (01:50→10:59)
[2017-02-24] MEDS: NORCO-10 PO PRN ×4 (03:53→20:54)
[2017-02-24] MEDS: MORPHINE IR PO PRN ×3 (03:55→17:23)
[2017-02-24] MEDS: MS CONTIN PO SCH ×2 (08:19→20:54)
[2017-02-24] MEDS: XANAX PO SCH ×3 (08:20→17:25)
[2017-02-24] MEDS: SOMA PO SCH ×3 (10:57→17:26)
--- NOTE | 2017-02-24 15:14 | PROGRESS NOTE ---
DATE: 02/24/2017 Mr. Hickey is under [facility]. He is still in a lot of pain. We will put him on [place] 10 every 6 hours. Overall condition is otherwise unchanged on him. He also getting Soma. He is slightly dissatisfied with pain management that he has. We will go up on the [place]. -3 cc: Kirby Ward MD
[2017-02-24] MEDS: PHENERGAN PO PRN (20:54)
[2017-02-25] MEDS: PHENERGAN PO PRN (03:54)
[2017-02-25] MEDS: NORCO-10 PO PRN ×3 (03:54→11:36)
[2017-02-25] MEDS: SOMA PO SCH ×2 (08:03→12:03)
[2017-02-25] MEDS: MS CONTIN PO SCH (08:03)
[2017-02-25] MEDS: XANAX PO SCH ×2 (08:03→12:02)
[2017-02-25 08:28] VITALS: BP 113/54
--- NOTE | 2017-02-25 10:24 | PROGRESS NOTE ---
DATE: 02/25/2017 Mr. Hickey is drowsy with the effect of [place] 10 that he just had. He is still using oxygen. The family and the patient both want him discharged today. Will discharge him. Will go in an ambulance today. -6 cc: Kirby Ward MD
[2017-02-25] MEDS: MORPHINE IR PO PRN (13:34)
--- NOTE | 2017-02-26 10:04 | DISCHARGE SUMMARY ---
ADMISSION DATE: 02/22/2017 DISCHARGE DATE: 02/25/2017 Mr. Hickey was admitted on 02/22/2017 to [facility]. He was discharged yesterday, that is 02/25/2017. He was a DNR patient. He has carcinoma of the left lung with collapse and the tumor was pressing on the pericardium as well as superior vena cava. He was given only comfort measures with pain medications mostly and he was discharged home with Hospice. cc: Kirby Ward MD
== END 2017-02-25 14:24 | disposition hospice, home (50) ==
LOC: 3S 14:03 → 3N 15:28
PROVIDERS: ADMIT Internal Medicine; ATTEND Internal Medicine